=== PATIENT | male | born 1975 | race Caucasian/White ===

== ENCOUNTER 2018-10-15 06:09 | Emergency (ER) | payer MEDICAID ==
[~2018-10-15] VITALS: Ht 182.9 cm; Wt 95.3 kg
[2018-10-15 06:10] VITALS: BP 120/81
[2018-10-15] MEDS ORDERED: LIDOCAINE-MPF 1%, 2ML ONE (07:20)
[2018-10-15] MEDS ORDERED: LIDOCAINE-MPF 1%, 2ML INFIL ONE (07:30)
[2018-10-15] MEDS ORDERED: KETOROLAC 30 MG/1 ML ONE (07:43)
[2018-10-15] MEDS ORDERED: KETOROLAC 30 MG/1 ML IM ONE (08:00)
== END 2018-10-15 08:31 | disposition home or self-care (01) ==
LOC: ED 08:08
DX: K04.7 Periapical abscess without sinus (principal); F17.200 Nicotine dependence, unspecified, uncomplicated
CPT/HCPCS: 41800; 96372; 99283; J1885; J3490